=== PATIENT | female | born 1950 | race Caucasian/White ===

== ENCOUNTER 2020-04-26 14:51 | Emergency (ER) | payer MEDICARE, SELFPAY ==
[2020-04-26 14:55] VITALS: BP 146/86; PULSE 97; RESP 18; TEMP 36.8; O2SAT 97; BMI 23.9
--- NOTE | 2020-04-26 15:01 | ED_ITS ---
Documented by User: ADAMS Navarro 04/27/20 07:45 HPI - Extremity Injury (Upper) General: Chief Complaint: Extremity Injury, Upper Stated Complaint: left hand injury Time Seen by Provider: 04/26/20 14:59 Source: patient Mode of arrival: ambulatory Limitations: no limitations History of Present Illness: HPI narrative: Patient is a 69-year-old female who presents to ED today with a complaint of a left wrist injury that she sustained after accidentally tripping over her cognos bi developer door. Patient denies any other injury sustained. She has obvious deformity to her left wrist upon arrival. She is not complaining of sensory deficits. MD complaint: injury to: left and wrist Onset (ago): hour(s) Other Extremity Injury: Left: wrist Other injuries: none Place: home Severity: moderate Relieving factors: immobilization Exacerbating factors: movement of extremity Context: fall Associated symptoms: Reports no associated symptoms; Denies neck pain Review of Systems Eyes: Denies: change in vision, blurry vision or photophobia Card: Denies: chest pain Resp: Denies: dyspnea GI: Denies: nausea or vomiting Musc: Reports: joint pain (L wrist); Denies: neck pain or back pain Neuro: Denies: numbness in extremities or sensory changes Physical Exam Const: COMMON NORMALS: no acute distress, average body habitus, patient oriented x3, no limitations, healthy appearing, alert and well nourished ORIENTATION/CONSCIOUSNESS: Yes oriented to person, Yes oriented to place and Yes oriented to time Extremity: OTHER: obvious deformity to L wrist consistent with fracture; radial pulse intact and equal bilaterally; sensory intact; normal cap refill Neuro: FRANCOISE COMA SCALE: document GCS findings Francoise coma scale eye opening: Spontaneous Francoise coma scale verbal response: Orientated [place] coma scale motor response: Obey commands [place] coma scale total score: 15 COMMON NORMALS: patient oriented x3, moves all extremities and no focal motor deficits SENSORIUM/ORIENTATION: Yes alert, Yes oriented to person, Yes oriented to place and Yes oriented to time Skin: COMMON NORMALS: no rashes or lesions noted GENERAL SKIN EXAM: no rashes or lesions noted Course Consultations: Consultation #1: Dr. Lovett-reviewed imaging; recommends attem pted reduction, splint, and will see in office for surgery; will need PCR COVID test Vital Signs: Vital signs: Vital Signs Temperature 98.2 F 04/26/20 14:55 Pulse Rate 70 04/26/20 18:39 Respiratory Rate 18 04/26/20 18:39 Blood Pressure 130/77 04/26/20 18:39 Pulse Oximetry 94 04/26/20 18:39 MDM - Extremity Injury (Upper) MDM Narrative: Medical decision making narrative: Care was transferred to Dr. Vaughn at the end of my shift with plans for reduction of her wrist. Information has been placed with CM for ortho followup. COVID performed per Dr. Lovett. Pt requesting Tramadol for her pain. Imaging Data^: L wrist XR: Radiologist's impression: [facility] [place] [address] [place] [address] XRay Report Signed Patient: Montserrat oBykin #: [id number] : 3Acct#:[id number] Age/Sex: 69 / FADM Date: 04/26/20 Loc: ERRoom/Bed: Attending Dr: Ordering Provider/Ordering MD: Suad Lee Date of Service: 04/26/20 Procedure(s): XR wrist LT min 3V* [id number] Accession Number(s): [id number] Report Number: [id number] PROCEDURE INFORMATION: Exam: XR Left Wrist Exam date and time: 04/26/2020 2:59 PM Age: 69 years old Clinical indication: Injury or trauma; Fall; Blunt trauma (contusions or hematomas); Wrist; Left TECHNIQUE: Imaging protocol: XR Left wrist. Views: 3 or more views. COMPARISON: No relevant prior studies available. FINDINGS: Bones/joints: Fracture of the distal radius. The distal fracture fragment demonstrates approximately 2 cm of dorsal displacement relative to the shaft. Fracture of the ulnar styloid process demonstrated on the oblique image. The carpal bones are intact. Mild degenerative change of the 1st carpometacarpal joint. No widening of the intercarpal joints. Soft tissues: Soft tissue swelling noted. XR/XR wrist LT min 3V* [id number] IMPRESSION: Colles fracture of the left wrist. Dictated By:César Givens MD Signed By:César Givens MDSigned Date/Time:04/26/20 1606 DD/ 1604 Discharge Plan Discharge Patient Disposition: Home Clinical Impression: Closed fracture of distal end of left radius Qualifiers: Encounter type: initial encounter Fracture morphology: Colles' Qualified Code(s): S52.532A - Colles' fracture of left radius, initial encounter for closed fracture Condition: Stable Prescriptions: New tramadol 50 mg tablet 50 mg PO Q6H PRN (Reason: pain) Qty: 20 RF: 0 No Action nitroglycerin 0.4 mg tablet, sublingual 0.4 mg SUBLINGUAL Q5M PRN (Reason: Chest Pain) RF: 0 aspirin [Adult Aspirin Regimen] 81 mg tablet,delayed release (DR/EC) 81 mg PO DAILY@08 RF: 0 levothyroxine 25 mcg capsule 25 mcg PO DAILY@07 RF: 0 alendronate 70 mg tablet 70 mg PO Q7D RF: 0 Tums 300 mg (750 mg) Tablet,Chewable See Rx Instructions .ROUTE .COMPLEX RF: 0 Vitamin D2 1,250 mcg (50,000 unit) capsule 50,000 unit PO Q14D RF: 0 Tylenol PM Extra Strength 25-500 mg Tablet 1 - 2 tab PO PRN RF: 0 escitalopram oxalate 10 mg tablet 10 mg PO DAILY@09 RF: 0 Lumigan 0.01 % drops 1 drp ophthalmic (eye) DAILY@21 RF: 0 amlodipine 10 mg tablet 10 mg PO DAILY@08 RF: 0 fosinopril 40 mg tablet 40 mg PO DAILY@20 RF: 0 rosuvastatin 10 mg tablet 10 mg PO DAILY@20 RF: 0 Discharge Orders: Discharge ED (Routine); Ordered 04/26/20 Ordered By: César Vaughn Referrals: Chivo Lovett MD [Physician] - Christohper Burns DO [Primary Care Provider] - Activity Restrictions/Additional Instructions: As discussed case management should contact you tomorrow and give you an appointment date and time to see Dr. Lovett. If you have not heard from them by 3 PM, please contact the emergency department for further instructions. You most likely will require surgery this week on your wrist. Return to the emergency department for uncontrollable pain or numbness/tingling to your hand. Coding Level of Care Code ED Airdrop Systems Technician for Chg Fwd Exam Expanded Problem Focused Documented by User: César Vaughn MD 04/26/20 18:00 HPI - Extremity Injury (Upper) General: Chief Complaint: Extremity Injury, Upper Stated Complaint: left hand injury Time Seen by Provider: 04/26/20 14:59 Procedures Orthopedic Fracture Reduction Fracture #1: Time Out Performed: Yes Side: left Fracture Reduction Location: radius Analgesia: procedural sedation Technique: direct manipulation and traction/counter-traction Post Reduction X-rays Demonstrate: acceptable reduction Post-reduction neuro exam: intact Post-reduction vascular exam: intact Splint Applied: Yes Patient Tolerated Procedure: well Procedural Sedation Indication: fracture/dislocation reduction ASA Class: II Preparation: monitoring and evaluation advisor applied, pulse oximeter, capnometry used, supplemental O2 applied, reversal agents at bedside, suction/airway equipment at bedside and IV secured IV Propofol dose (mg): 65 Patient Tolerated Procedure: well Complications: none Course Vital Signs: Vital signs: Vital Signs Temperature 98.2 F 04/26/20 14:55 Pulse Rate 70 04/26/20 18:39 Respiratory Rate 18 04/26/20 18:39 Blood Pressure 130/77 04/26/20 18:39 Pulse Oximetry 94 04/26/20 18:39 Discharge Plan Discharge Patient Disposition: Home Clinical Impression: Closed fracture of distal end of left radius Qualifiers: Encounter type: initial encounter Fracture morphology: Colles' Qualified Code(s): S52.532A - Colles' fracture of left radius, initial encounter for closed fracture Condition: Stable Prescriptions: New tramadol 50 mg tablet 50 mg PO Q6H PRN (Reason: pain) Qty: 20 RF: 0 No Action nitroglycerin 0.4 mg tablet, sublingual 0.4 mg SUBLINGUAL Q5M PRN (Reason: Chest Pain) RF: 0 aspirin [Adult Aspirin Regimen] 81 mg tablet,delayed release (DR/EC) 81 mg PO DAILY@08 RF: 0 levothyroxine 25 mcg capsule 25 mcg PO DAILY@07 RF: 0 alendronate 70 mg tablet 70 mg PO Q7D RF: 0 Tums 300 mg (750 mg) Tablet,Chewable See Rx Instructions .ROUTE .COMPLEX RF: 0 Vitamin D2 1,250 mcg (50,000 unit) capsule 50,000 unit PO Q14D RF: 0 Tylenol PM Extra Strength 25-500 mg Tablet 1 - 2 tab PO PRN RF: 0 escitalopram oxalate 10 mg tablet 10 mg PO DAILY@09 RF: 0 Lumigan 0.01 % drops 1 drp ophthalmic (eye) DAILY@21 RF: 0 amlodipine 10 mg tablet 10 mg PO DAILY@08 RF: 0 fosinopril 40 mg tablet 40 mg PO DAILY@20 RF: 0 rosuvastatin 10 mg tablet 10 mg PO DAILY@20 RF: 0 Discharge Orders: Discharge ED (Routine); Ordered 04/26/20 Ordered By: César Vaughn Referrals: Chivo Lovett MD [Physician] - Christopher Burns DO [Primary Care Provider] - Activity Restrictions/Additional Instructions: As discussed case management should contact you tomorrow and give you an appointment date and time to see Dr. Lovett. If you have not heard from them by 3 PM, please contact the emergency department for further instructions. You most likely will require surgery this week on your wrist. Return to the emergency department for uncontrollable pain or numbness/tingling to your hand. Coding Level of Care Code ED Airdrop Systems Technician for Kristag Fwd Exam Expanded Problem Focused
[2020-04-26 16:11] VITALS: PULSE 72; RESP 20; O2SAT 97
[2020-04-26 16:35] VITALS: RESP 18
[2020-04-26] MEDS: morphine 4 mg/mL SDV 1 mL IVP (16:35)
[2020-04-26] MEDS: ondansetron 2 mg/ML SDV 2 mL 4 MG IVP (16:35)
[2020-04-26 17:40] VITALS: BP 151/78; PULSE 73; RESP 18; O2SAT 99
[2020-04-26] MEDS: propofol 10 mg/mL SDV 20 mL 65 MG IVP (17:42)
--- NOTE | 2020-04-26 17:49 | XRR_ITS ---
PROCEDURE INFORMATION: Exam: XR Left Wrist Exam date and time: 04/26/2020 5:50 PM Age: 69 years old Clinical indication: Condition or disease; Other: Post reduction TECHNIQUE: Imaging protocol: XR Left wrist. Views: 1 or 2 views. COMPARISON: CR (UP EXM, ) 04/26/2020 3:08 PM FINDINGS: Limitations: Immobilization device overlies the area of interest, obscuring fine detail. Bones/joints: The Colles fracture seen on the earlier study has been reduced. The articular surface of the radius is currently in neutral alignment. Soft tissues: Unremarkable. XR/XR wrist LT 2V [id number] IMPRESSION: 1. Immobilization device overlies the area of interest, obscuring fine detail. 2. Status post reduction and immobilization of left wrist Colles fracture.
[2020-04-26 17:52] VITALS: BP 151/78; PULSE 89; RESP 18; O2SAT 100
[2020-04-26 18:39] VITALS: BP 130/77; PULSE 70; RESP 18; O2SAT 94
--- NOTE | 2020-04-27 09:18 | DCPLANNER ---
hospitality services manager had message to schedule a follow up appointment for patient with ortho. hospitality services manager called the ortho clinic, spoke with Bozena, gave clinic patients information. hospitality services manager was told that patients information would be printed and reviewed. Clinic will call patient with appointment information.
--- NOTE | 2020-04-28 07:55 | DCPLANNER ---
Patient had a follow up appointment with ortho on 04.27.20 - patient did attend appointment.
[2020-04-28 18:54] LABS: Quest SARS-CoV-2 RNA NOT DETECTED (NOT DETECTED)
--- NOTE | 2020-04-29 09:41 | PC.NURSE ---
Patient called to be notified of COVID results at this time. Message left on patients phone at this time.
== END 2020-04-26 18:35 | disposition home or self-care (01) ==
PROVIDERS: Emergency Provider Physician Assistant; PCP Family Medicine
DX: S52.532A Colles' fracture of left radius, initial encounter for closed fracture (principal); Z79.82 Long term (current) use of aspirin; W22.8XXA Striking against or struck by other objects, initial encounter
CPT/HCPCS: 12345; 29125; 73100; 73110; 87635; 96374; 96375; 99282; 99284; J2270; J2405; J2704

== ENCOUNTER 2020-04-30 12:23 | Day surgery (SDC) | payer MEDICARE, SELFPAY ==
[2020-04-29 10:44] VITALS: BMI 23.9
--- NOTE | 2020-04-29 16:46 | PC.NURSE ---
Patient contacted, COVID-19 test negative
[2020-04-30] VITALS (8 sets, daily range): BP systolic 112–132; BP diastolic 63–83; PULSE 76–108; RESP 12–18; TEMP 36.4–36.6; O2SAT 94–98
--- NOTE | 2020-04-30 | XR_ITS ---
WS: [id number] Left wrist, AP and lateral C-arm fluoroscopy views in the OR, 04/30/2020 Clinical Data: ORIF LT WRIST, CHASITY PICS Comparison: Left wrist, 04/26/2020. Findings: There is a plate on the ventral aspect of the distal left radius attached with multiple orthopedic sc rews reducing the left distal radial fracture. The ulnar styloid fracture is visible. XR/XR wrist LT 2V [id number] Impression: Internal fixation of distal left radial fracture.
--- NOTE | 2020-04-30 | SCC_ITS ---
Procedure Done: Open reduction and internal fixation left distal radius 30.2 seconds of fluoroscopic guidance, for a cumulative dose of 0.33 mGy, was provided to Dr. Lovett by the radiology department. C-arm images of the LEFT wrist were saved for the patient's permanent record. [facility] HEALTH NETWORKJasmina
[2020-04-30] MEDS: sodium chloride 0.9% 1,000 ML 30 ML IV (13:31)
--- NOTE | 2020-04-30 14:03 | ANES.PREANE2 ---
Pre-Anesthetic Assessment Pre-Anesthetic Assessment: Height/Weight: Height 1.65 m Weight 65.317 kg Temp Pulse Resp BP Pulse Ox 97.6 F 76 18 131/83 98 04/30/20 13:26 04/30/20 13:26 04/30/20 13:26 04/30/20 13:26 04/30/20 13:26 Preop Diagnosis: Fracture left distal radius Proposed Procedure: Operation Date: 04/30/20 15:25 Proposed Procedures p ORIF lt distal radius fracture (75614) s52.532a(Left) - Chivo Lovett MD Familial anesthetic complications: None Was Beta Es taken within 24 hours: N/A Last intake: Intake 3-4 plain ritz crackers at 0900 Last Liquid Date 04/29/20 Last Liquid Time 20:00 Last Solid Date 04/30/20 Last Solid Time 09:00 Social: Social History: No alcohol and No tobacco Exam: Pre-Anes Outpt Exam: alert, oriented x 3, clear to auscultation bilaterally and regular rate & rhythm Airway: Cervical ROM: WNL MP: 3 Dentition: Full Pulmonary: Pulmonary: None reported CV/HEM: CV/HEM: HTN Metabolic: Metabolic: Thyroid Comments: parathyroid surgery in 2018 Anesthetic Plan: ASA status: 2 Anesthesia: General and Regional (specify below) Risk of > 500 ml blood loss (7ml/kg in children): No Meds/Allergies Current Medications: Current Medications Generic Name Dose Route Start Last Admin Trade Name Freq PRN Reason Stop Dose Admin Sodium Chloride 1,000 mls @ 30 ml s/hr 04/30/20 12:45 04/30/20 13:31 Sodium Chloride 0.9% IV 05/01/20 12:44 30 mls/hr .Q24H LETY Administration Data Anesthesia Cardiac Studies: No Data to Display
[2020-04-30] MEDS: midazolam 1 mg/mL INJ 5 ML 5 MG IVP (14:20)
--- NOTE | 2020-04-30 14:26 | ANES.PROC ---
Anesthesia Procedures Procedure/Date: 04/30/20 Nerve Block ^: Nerve Block 1: Main Anesthesia: general anesthesia Time Out Performed: Yes Consent: requested by attending/covering physician Nerve block location: supraclavicular (L) Anesthesia monitors applied: pulse oximetry, EKG, BP cuff and oxygen Nerve block position: semi sitting Anesthetic Used: ropivicaine 0.5% and with decadron (4 mg) Amount of anesthesia used (mL): 30 Ultrasound used to: recognize landmarks and visualize and ID brachial plexus Nerve Stimulator Used?: No Interscalene/Femoral BLK: 4 stimuplex 21 g needle used for position and inplane approach, visualize local anesthetic spread and no vascular puncture identified Injection: neg aspiration of heme Patient Tolerated Procedure: well and no complications Complications: none
--- NOTE | 2020-04-30 14:27 | W.PM.OPSUD ---
Surgery/Procedure H&P Update DATE OF PROCEDURE: April 30, 2020 DATE H&P PERFORMED: 04/27/20 PREOP DIAGNOSIS: Fracture left distal radius PLANNED PROCEDURE: Operation Date: 04/30/20 15:25 Proposed Procedures p ORIF lt distal radius fracture (10009) s52.532a(Left) - Chivo Lovett MD
--- NOTE | 2020-04-30 15:57 | P.OP_ITS ---
Operative Report Date of procedure: April 30, 2020 Pre-op Diagnosis: Fracture left distal radius Post-op diagnosis: same Post-op Findings: Extra-articular fracture left distal radius with dorsal comminution Procedure Done: Open reduction and internal fixation left distal radius Implants: [place] Varizx short narrow left distal radius plate Anesthesia: General and Nerve Block (Axillary nerve block) Estimated blood loss (mL): 20 Tourniquet time (min): 20 Findings: The patient had extra-articular fracture of the left distal radius with dorsal comminution Condition: stable Disposition: PACU Procedure: Initial attempts were made at closed reduction however a satisfactory stable reduction could not be obtained. A decision was made to proceed with open reduction internal fixation.A 5 cm long incision was made along over the flexor carpi radialis tendon. Dissection was carried down through the tendon sheath. Dissection was carried down bluntly to the pronator quadratus. The pronator quadratus was elevated off of the distal radius leaving a cuff for later repair. Closed reduction was accomplished of the distal radius. A [place] Variax short narrow left distal radius plate was applied. It was fixed distally with 3 2.4 mm locking screws and proximally with 3 bicortical screws. Intraoperative imaging showed excellent position of the hardware. The wound was irrigated with saline. The pronator quadratus was reapproximated with 2-0 Vicryl. Subcutaneous tissues were closed with 2-0 Vicryl. The skin was closed with skin terri. Sterile dressings were applied. The patient was taken to outpatient surgery in stable condition.
--- NOTE | 2020-04-30 19:34 | ANE.PACU2 ---
Inpatient post-anesthesia follow up: Airway intact: Yes Vital signs: Temperature 97.7 F Pulse Rate 87 Respiratory Rate 16 Blood Pressure 132/64 Pulse Oximetry 98 Oxygen Delivery Me thod Room Air Oxygen Flow Rate Fraction of Inspir ed Oxygen Hydration adequate: Yes Nausea and vomiting: No Pain level: 2 Mental status: Baseline
== END 2020-04-30 17:10 | disposition home or self-care (01) ==
PROVIDERS: PCP Family Medicine; Visit Provider Orthopaedic Surgery
PROC: (CPT 25607; principal; 2020-04-30 15:25)
DX: S52.552D Other extraarticular fracture of lower end of left radius, subsequent encounter for closed fracture with routine healing (principal); X58.XXXD Exposure to other specified factors, subsequent encounter; I10 Essential (primary) hypertension; Z79.82 Long term (current) use of aspirin
CPT/HCPCS: 25607; 12345; 64415; 73100; 76000; 76942; C1713; J0330; J0690; J1100; J1580; J2250; J2405; J2704; J2795; J3010; J3490; J7030

== ENCOUNTER 2020-05-12 14:21 | Outpatient (CLI) | payer MEDICARE, SELFPAY | END 2020-05-12 14:22 | disposition home or self-care (01) | LOC: SPT 14:21 | PROVIDERS: PCP Family Medicine; Visit Provider Orthopaedic Surgery | DX: Z46.89 Encounter for fitting and adjustment of other specified devices (principal); S52.532D Colles' fracture of left radius, subsequent encounter for closed fracture with routine healing; X58.XXXD Exposure to other specified factors, subsequent encounter | CPT/HCPCS: 97760; L3908 ==

== ENCOUNTER 2020-05-14 11:50 | Outpatient (RCR) | payer MEDICARE, SELFPAY | END 2020-05-24 23:59 | disposition home or self-care (01) | LOC: SOT 11:50 | PROVIDERS: PCP Family Medicine; Referring Provider Orthopaedic Surgery; Visit Provider Orthopaedic Surgery | DX: Z47.89 Encounter for other orthopedic aftercare (principal) | CPT/HCPCS: 97167 ==

== ENCOUNTER 2020-05-25 06:00 | Outpatient (RCR) | payer MEDICARE, SELFPAY | END 2020-06-21 23:59 | disposition home or self-care (01) | LOC: SOT 06:00 | PROVIDERS: PCP Family Medicine; Referring Provider Orthopaedic Surgery; Visit Provider Orthopaedic Surgery | DX: Z48.89 Encounter for other specified surgical aftercare (principal); S52.532D Colles' fracture of left radius, subsequent encounter for closed fracture with routine healing | CPT/HCPCS: 97018; 97110 ==

== ENCOUNTER 2020-06-02 13:05 | Outpatient (CLI) | payer MEDICARE, SELFPAY ==
--- NOTE | 2020-06-02 13:30 | USCV_ITS ---
Ashutosh Montserrat Age: 70 Gender: F : 1950 Exam Date: 06/02/2020 13:27 Ordering Phys: Jarod Hua MD ([email or web address]) Technologist: Shasha Shaffer [place]am Location[place] [facility] [place] Indication: LBBB BP: 140 / 80 HR: 92 Rhythm: Sinus Technical Quality: Adequate MEASUREMENTS (Male / Female) Normal Values 2D ECHO LV Diastolic Diameter PLAX 4.2 cm 4.2 - 5.9 / 3.9 - 5.3 cm LV Systolic Diameter PLAX 2.4 cm LV Chamber Size 4.1 cm IVS Diastolic Thickness 1.0 cm 0.6 - 1.0 / 0.6 - 0.9 cm IVS Systolic Thickness 0.9 cm LVPW Diastolic Thickness 1.0 cm 0.6 - 1.0 / 0.6 - 0.9 cm LVPW Systolic Thickness 1.4 cm RV Chamber Size 3.1 cm LVOT Diameter 2.0 cm LV Ejection Fraction 2D Teich 73.6 % LV Ejection Fraction MOD 2C 59.1 % LV Ejection Fraction 2C AL 57.3 % LA Diameter 2.1 cm LA Width 2.7 cm LA Height 2.6 cm RA Width 3.1 cm RA Height 3.2 cm Aorta at Sinotubular Diameter 3.1 cm M-MODE LV Diastolic Diameter MM 4.1 cm 4.2 - 5.9 / 3.9 - 5.3 cm LV Systolic Diameter MM 2.7 cm LV Ejection Fraction MM Teich 63.9 % IVS Diastolic Thickness MM 0.9 cm 0.6 - 1.0 / 0.6 - 0.9 cm IVS Systolic Thickness MM 1.0 cm LVPW Diastolic Thickness MM 1.0 cm 0.6 - 1.0 / 0.6 - 0.9 cm LVPW Systolic Thickness MM 1.2 cm RV Diastolic Diameter MM 0.5 cm Aortic Annulus Diameter 3.0 cm LA Ao Ratio MM 0.9 MV E Point Septal Separation 0.3 cm DOPPLER AV Peak Velocity 175.0 cm/s LVOT Peak Velocity 145.0 cm/s AV Area Cont Eq vti 2.8 cm squared AV Area Cont Eq pk 2.7 cm squared MV Area PHT 4.6 cm squared Mitral E to A Ratio 0.8 MV E' Velocity 50.5 cm/s Mitral E to MV E' Ratio 7.6 Mitral E to LV E' Lateral Ratio 8.0 Mitral E to LV E' Septal Ratio 7.3 TR Peak Velocity 302.6 cm/s TR Peak Gradient 36.6 mmHg TR Mean Velocity 223.9 cm/s TR Mean Gradient 21.7 mmHg TR Velocity Time Integral 81.4 cm TV Peak E Velocity 64.0 cm/s Right Atrial Pressure 3.0 mmHg Pulmonary Artery Systolic Pressu 39.6 mmHg PV Peak Velocity 64.0 cm/s RV Acceleration Time 0.1 s RV Ejection Time 0.3 s RV AcT/ET 0.3 FINDINGS Left Ventricle Normal left ventricular size and systolic function, EF 50-55 %. No regional wall motion abnormalities. Abnormal septal motion consistent with conduction abnormality. Grade I/IV diastolic dysfunction (abnormal relaxation filling pattern), normal to mildly elevated filling pressures. Right Ventricle The right ventricle is normal in size and function. Right Atrium The right atrium is normal in size. Left Atrium The left atrium is normal in size. Mitral Valve Thickened mitral valve. Mild mitral annular calcification. Mild mitral valve regurgitation. Mild prolapse of the anterior mitral valve leaflet. Aortic Valve Thickened aortic valve. Trace to mild aortic valve regurgitation. Tricuspid Valve Moderate tricuspid valve regurgitation. Pulmonic Valve No gross abnormalities noted Pericardium No pericardial effusion. Aorta Normal ascending aorta dimension. CONCLUSIONS Normal left ventricular size and systolic function, EF 50-55 %. No regional wall motion abnormalities. Abnormal septal motion consistent with conduction abnormality. Grade I/IV diastolic dysfunction (abnormal relaxation filling pattern), normal to mildly elevated filling pressures. Thickened mitral valve. Mild mitral annular calcification. Mild mitral valve regurgitation. Mild prolapse of the anterior mitral valve leaflet. Thickened aortic valve. Trace to mild aortic valve regurgitation. There is no pericardial effusion. There are no intracardiac masses. Beta study from 04/06/2017, there is significant improvement in the LV ejection fraction Dr Jarod Hua MD FAC (Electronically Signed) Final Date: 02 June 2020 18:29 S
== END 2020-06-02 13:06 | disposition home or self-care (01) ==
LOC: NM 13:14
PROVIDERS: PCP Family Medicine; Visit Provider Internal Medicine Cardiovascular Disease
DX: I44.7 Left bundle-branch block, unspecified; I08.0 Rheumatic disorders of both mitral and aortic valves; R07.89 Other chest pain; Z86.79 Personal history of other diseases of the circulatory system
CPT/HCPCS: 93306

== ENCOUNTER 2021-05-12 10:27 | Outpatient (CLI) | payer MEDICARE, SELFPAY ==
--- NOTE | 2021-05-12 10:37 | MM_ITS ---
WS: [id number] BILATERAL DIGITAL SCREENING MAMMOGRAPHY WITH CAD CLINICAL INFORMATION: SCREENING HISTORY: Screening mammogram. No current complaints. COMPARISON: November 14, 2016. TECHNIQUE: Bilateral CC and MLO views. FINDINGS: Scattered fibroglandular densities bilaterally. Punctate and lucent centered calcifications. Stable d ense breast tissue upper outer left breast unchanged. No suspicious focal mass, asymmetry, calcificat ions, or architectural distortion. No evidence of malignancy. MM/[place] [id number] IMPRESSION: BI-RADS: 2-Benign FOLLOW UP: 1 Year Follow-up Recommend return to annual screening mammography.
== END 2021-05-12 10:28 | disposition home or self-care (01) ==
LOC: RADSHAW 10:34
PROVIDERS: PCP Family Medicine; Visit Provider Family Medicine
DX: Z12.31 Encounter for screening mammogram for malignant neoplasm of breast (principal)
CPT/HCPCS: 77067

== ENCOUNTER → 2021-11-16 11:09 | Outpatient (BNVA) | payer MEDICARE, SELFPAY | PROVIDERS: PCP Family Medicine; Visit Provider Internal Medicine Cardiovascular Disease | DX: I42.9 Cardiomyopathy, unspecified (principal); I10 Essential (primary) hypertension; I44.7 Left bundle-branch block, unspecified; E78.5 Hyperlipidemia, unspecified | CPT/HCPCS: 99214 ==

== ENCOUNTER → 2022-02-23 07:46 | Outpatient (BNVA) | payer MEDICARE, SELFPAY | PROVIDERS: PCP Family Medicine; Referring Provider Family Medicine; Visit Provider Nurse Practitioner | DX: G31.84 Mild cognitive impairment of uncertain or unknown etiology (principal); R26.89 Other abnormalities of gait and mobility | CPT/HCPCS: 36415; 82607; 96116; 99204 ==

== ENCOUNTER 2022-03-11 06:36 | Outpatient (CLI) | payer MEDICARE, SELFPAY ==
--- NOTE | 2022-03-11 07:15 | MR_ITS ---
WS: [id number] MRI BRAIN WITH AND WITHOUT CONTRAST HISTORY: F03.90 - Unspecified dementia, unspecified severity, memory loss. COMPARISON: None available. TECHNIQUE: Multiplanar imaging performed through the brain with MultiHance 15 ml's IV. No acute infarcts are seen. Delvalle-white matter differentiation is well preserved. Symmetric atrophy an d mild small vessel ischemic disease. There is also small amount of microvascular ischemic disease in the robi bilaterally. No prior infarct. No lacunar infarct or hemorrhage. No susceptibility artifacts or prior lacunar infarcts. Ventricles and extra-axial spaces are normal. Clivus and pituitary gland are normal. Visualized posterior fossa and brainstem are also normal. Postcontrast images are negative for masses or vascular malformations. Dural venous sinuses are normal. Paranasal sinuses: Well aerated with no significant disease. Mastoid air cells: Normal. Calvarium and scalp: Normal. MR/MR head wo/w con [id number] IMPRESSION: 1. No enhancing mass or acute infarct. 2. Mild cerebral atrophy and small vessel ischemic disease. 3. Mild small vessel ischemic disease in the robi.
[2022-03-11] MEDS: gadobenate dimeglumine 20 mL vial IV (07:48)
== END 2022-03-11 06:37 | disposition home or self-care (01) ==
LOC: RAD 06:37
PROVIDERS: PCP Family Medicine; Visit Provider Nurse Practitioner
DX: F03.90 Unspecified dementia, unspecified severity, without behavioral disturbance, psychotic disturbance, mood disturbance, and anxiety (principal); I67.82 Cerebral ischemia; G31.9 Degenerative disease of nervous system, unspecified
CPT/HCPCS: 70553; A9577

== ENCOUNTER 2022-06-02 15:05 | Outpatient (CLI) | payer MEDICARE, SELFPAY ==
--- NOTE | 2022-06-02 15:14 | MM_ITS ---
WS: [id number] BILATERAL 3D TOMOSYNTHESIS DIGITAL SCREENING MAMMOGRAPHY WITH CAD CLINICAL INFORMATION: SCREENING HISTORY: Screening mammogram. No current complaints. COMPARISON: May 12, 2021 TECHNIQUE: Bilateral CC and MLO views. FINDINGS: Scattered fibroglandular densities bilaterally. No suspicious focal mass, asymmetry, calcifications, or architectural distortion. No evidence of malignancy. Punctate and lucent centered calcifications. Stable asymmetric breast tissue upper outer LEFT breast posteriorly. MM/[place] [id number] IMPRESSION: BI-RADS: 2-Benign FOLLOW UP: 1 Year Follow-up Recommend return to annual screening mammography.
== END 2022-06-02 15:06 | disposition home or self-care (01) ==
PROVIDERS: PCP Family Medicine; Visit Provider Family Medicine
DX: Z12.31 Encounter for screening mammogram for malignant neoplasm of breast (principal)
CPT/HCPCS: 77063; 77067

== ENCOUNTER → 2022-06-07 08:16 | Outpatient (BNVA) | payer MEDICARE, SELFPAY | PROVIDERS: PCP Family Medicine; Visit Provider Family Medicine | DX: R41.89 Other symptoms and signs involving cognitive functions and awareness (principal); F03.90 Unspecified dementia, unspecified severity, without behavioral disturbance, psychotic disturbance, mood disturbance, and anxiety; Z13.220 Encounter for screening for lipoid disorders; R07.89 Other chest pain; Z86.79 Personal history of other diseases of the circulatory system; E21.3 Hyperparathyroidism, unspecified; R20.2 Paresthesia of skin; R20.0 Anesthesia of skin | CPT/HCPCS: 80053; 80061; 82310; 82607; 83970; 84443; 85025 ==

== ENCOUNTER → 2022-06-08 10:09 | Outpatient (BNVA) | payer MEDICARE, SELFPAY | PROVIDERS: PCP Family Medicine; Visit Provider Nurse Practitioner Family | DX: I10 Essential (primary) hypertension (principal); I42.9 Cardiomyopathy, unspecified | CPT/HCPCS: 99214 ==

== ENCOUNTER → 2022-07-26 07:41 | Outpatient (BNVA) | payer MEDICARE, SELFPAY | PROVIDERS: PCP Family Medicine; Referring Provider Family Medicine; Visit Provider Internal Medicine | DX: E21.3 Hyperparathyroidism, unspecified (principal); E55.9 Vitamin D deficiency, unspecified; E03.9 Hypothyroidism, unspecified; F03.90 Unspecified dementia, unspecified severity, without behavioral disturbance, psychotic disturbance, mood disturbance, and anxiety; Z79.890 Hormone replacement therapy | CPT/HCPCS: 99204 ==

== ENCOUNTER → 2022-08-16 14:08 | Outpatient (BNVA) | payer MEDICARE, SELFPAY | PROVIDERS: PCP Family Medicine; Visit Provider Specialist | DX: G30.9 Alzheimer's disease, unspecified (principal); F02.80 Dementia in other diseases classified elsewhere, unspecified severity, without behavioral disturbance, psychotic disturbance, mood disturbance, and anxiety | CPT/HCPCS: 99214 ==

== ENCOUNTER → 2022-11-09 11:04 | Outpatient (BNVA) | payer MEDICARE, SELFPAY | PROVIDERS: PCP Family Medicine; Visit Provider Internal Medicine Cardiovascular Disease | DX: R06.02 Shortness of breath (principal) | CPT/HCPCS: 36415; 80048; 83880; 99214 ==

== ENCOUNTER → 2022-11-30 10:01 | Outpatient (BNVA) | payer MEDICARE, SELFPAY | PROVIDERS: PCP Family Medicine; Visit Provider Specialist | DX: G30.9 Alzheimer's disease, unspecified; F02.80 Dementia in other diseases classified elsewhere, unspecified severity, without behavioral disturbance, psychotic disturbance, mood disturbance, and anxiety; R51.9 Headache, unspecified; R52 Pain, unspecified | CPT/HCPCS: 99213 ==

== ENCOUNTER → 2022-12-06 08:51 | Outpatient (BNVA) | payer MEDICARE, SELFPAY | PROVIDERS: PCP Family Medicine; Visit Provider Family Medicine | DX: G30.9 Alzheimer's disease, unspecified (principal); F02.80 Dementia in other diseases classified elsewhere, unspecified severity, without behavioral disturbance, psychotic disturbance, mood disturbance, and anxiety; E03.9 Hypothyroidism, unspecified; R41.89 Other symptoms and signs involving cognitive functions and awareness; Z13.6 Encounter for screening for cardiovascular disorders | CPT/HCPCS: 80053; 80061; 82306; 82607; 84439; 84443; 84480; 85025 ==

== ENCOUNTER → 2023-01-16 10:25 | Outpatient (BNVA) | payer MEDICARE, SELFPAY | PROVIDERS: PCP Family Medicine; Visit Provider Family Medicine | DX: E03.9 Hypothyroidism, unspecified (principal) | CPT/HCPCS: 84443 ==

== ENCOUNTER → 2023-01-25 10:19 | Outpatient (BNVA) | payer MEDICARE, SELFPAY | PROVIDERS: PCP Family Medicine; Visit Provider Internal Medicine | DX: E21.3 Hyperparathyroidism, unspecified (principal); E03.9 Hypothyroidism, unspecified; F03.90 Unspecified dementia, unspecified severity, without behavioral disturbance, psychotic disturbance, mood disturbance, and anxiety; Z79.890 Hormone replacement therapy | CPT/HCPCS: 99214 ==

== ENCOUNTER → 2023-02-27 10:52 | Outpatient (BNVA) | payer MEDICARE, SELFPAY | PROVIDERS: PCP Family Medicine; Visit Provider Specialist | DX: G30.9 Alzheimer's disease, unspecified (principal); F02.80 Dementia in other diseases classified elsewhere, unspecified severity, without behavioral disturbance, psychotic disturbance, mood disturbance, and anxiety | CPT/HCPCS: 96116; 99214 ==

== ENCOUNTER 2023-03-22 10:42 | Outpatient (RCR) | payer MEDICARE, SELFPAY | END 2023-03-23 23:59 | disposition home or self-care (01) | LOC: SST 10:42 | PROVIDERS: Visit Provider Family Medicine | DX: R41.89 Other symptoms and signs involving cognitive functions and awareness (principal); F03.90 Unspecified dementia, unspecified severity, without behavioral disturbance, psychotic disturbance, mood disturbance, and anxiety | CPT/HCPCS: 92523 ==

== ENCOUNTER 2023-03-24 06:00 | Outpatient (RCR) | payer MEDICARE, SELFPAY | END 2023-04-23 23:59 | disposition home or self-care (01) | LOC: SST 06:00 | PROVIDERS: Visit Provider Family Medicine | DX: F03.90 Unspecified dementia, unspecified severity, without behavioral disturbance, psychotic disturbance, mood disturbance, and anxiety (principal); R41.89 Other symptoms and signs involving cognitive functions and awareness | CPT/HCPCS: 92507 ==

== ENCOUNTER 2023-04-24 06:00 | Outpatient (RCR) | payer MEDICARE, SELFPAY | END 2023-05-24 23:59 | disposition home or self-care (01) | LOC: SST 06:00 | PROVIDERS: Visit Provider Family Medicine | DX: R41.89 Other symptoms and signs involving cognitive functions and awareness (principal); F03.90 Unspecified dementia, unspecified severity, without behavioral disturbance, psychotic disturbance, mood disturbance, and anxiety | CPT/HCPCS: 92507 ==

== ENCOUNTER → 2023-05-04 10:28 | Outpatient (BNVA) | payer MEDICARE, SELFPAY | PROVIDERS: Visit Provider Family Medicine | DX: Z86.79 Personal history of other diseases of the circulatory system (principal); E03.9 Hypothyroidism, unspecified; E21.3 Hyperparathyroidism, unspecified; R41.89 Other symptoms and signs involving cognitive functions and awareness; G30.9 Alzheimer's disease, unspecified; F02.80 Dementia in other diseases classified elsewhere, unspecified severity, without behavioral disturbance, psychotic disturbance, mood disturbance, and anxiety; Z13.6 Encounter for screening for cardiovascular disorders | CPT/HCPCS: 80053; 80061; 82607; 84443; 85025 ==

== ENCOUNTER → 2023-05-22 09:46 | Outpatient (BNVA) | payer MEDICARE, SELFPAY | PROVIDERS: Visit Provider Internal Medicine Cardiovascular Disease | DX: I44.7 Left bundle-branch block, unspecified (principal); R05.2 Subacute cough; E78.5 Hyperlipidemia, unspecified; I42.9 Cardiomyopathy, unspecified; I10 Essential (primary) hypertension | CPT/HCPCS: 99214 ==

== ENCOUNTER 2023-05-25 06:00 | Outpatient (RCR) | payer MEDICARE, SELFPAY | END 2023-06-22 23:59 | disposition home or self-care (01) | LOC: SST 06:00 | PROVIDERS: Visit Provider Family Medicine | DX: F03.90 Unspecified dementia, unspecified severity, without behavioral disturbance, psychotic disturbance, mood disturbance, and anxiety (principal) | CPT/HCPCS: 92507 ==

== ENCOUNTER 2023-07-20 09:21 | Outpatient (CLI) | payer MEDICARE, SELFPAY ==
--- NOTE | 2023-07-20 09:28 | MM_ITS ---
WS: [id number] SCREENING DIGITAL BREAST TOMOSYNTHESIS MAMMOGRAM WITH CAD HISTORY: SCREENING COMPARISON: 06/02/2022, 05/12/2021 and 11/14/2016 Bilateral CC and MLO with tomosynthesis and synthetic mammography submitted. Computer aided detection analyzed. Breast composition: There are scattered areas of fibroglandular density. There is a new asymmetry in the posterior LEFT breast central to the nipple. Asymmetry measures 5 x 5 mm. Additional bilateral be nign calcifications. IMPRESSION: MM/[place] [id number] BI-RADS: 0-Incomplete: Need additional imaging evaluation FOLLOW UP: Need Additional Imaging LEFT breast: Spot compression views (CC and MLO). True ML. Ultrasound to follow if abnormality persists.
== END 2023-07-20 09:22 | disposition home or self-care (01) ==
LOC: RAD 09:22
PROVIDERS: PCP Family Medicine; Visit Provider Family Medicine
DX: Z12.31 Encounter for screening mammogram for malignant neoplasm of breast (principal); N64.89 Other specified disorders of breast; R92.1 Mammographic calcification found on diagnostic imaging of breast
CPT/HCPCS: 77063; 77067

== ENCOUNTER 2023-08-28 08:34 | Outpatient (CLI) | payer MEDICARE, SELFPAY ==
--- NOTE | 2023-08-28 09:00 | MM_ITS ---
WS: [id number] DIAGNOSTIC LEFT DIGITAL TOMOSYNTHESIS MAMMOGRAPHY WITH CAD. HISTORY: abnormal screening mammogram COMPARISON: 07/20/2023, 06/02/2022 and 05/12/2021 Technique: CC, MLO and ML views. Breast composition: There are scattered areas of fibroglandular density. The asymmetry seen on the screening mammogram in the central LEFT breast resolves with additional imaging. No persistent abnor mality. MM/[place] [id number] IMPRESSION: BI-RADS: 2-Benign FOLLOW UP: 1 Year Follow-up Resolution of the asymmetry on additional imaging. Return to annual screening m ammography.
== END 2023-08-28 08:35 | disposition home or self-care (01) ==
LOC: RAD 08:34
PROVIDERS: PCP Family Medicine; Visit Provider Family Medicine
DX: R92.8 Other abnormal and inconclusive findings on diagnostic imaging of breast (principal); R92.322 Mammographic fibroglandular density, left breast
CPT/HCPCS: 77061; G0279

== ENCOUNTER → 2023-08-30 12:01 | Outpatient (BNVA) | payer MEDICARE, SELFPAY | PROVIDERS: PCP Family Medicine; Visit Provider Specialist | DX: G30.9 Alzheimer's disease, unspecified (principal); F02.B0 Dementia in other diseases classified elsewhere, moderate, without behavioral disturbance, psychotic disturbance, mood disturbance, and anxiety | CPT/HCPCS: 99213 ==

== ENCOUNTER → 2023-09-07 08:14 | Outpatient (BNVA) | payer MEDICARE, SELFPAY | PROVIDERS: PCP Family Medicine; Visit Provider Nurse Practitioner Family | DX: L57.8 Other skin changes due to chronic exposure to nonionizing radiation (principal); Z85.828 Personal history of other malignant neoplasm of skin; Z48.817 Encounter for surgical aftercare following surgery on the skin and subcutaneous tissue; Z71.89 Other specified counseling | CPT/HCPCS: 99202 ==

== ENCOUNTER → 2023-10-09 08:05 | Outpatient (BNVA) | payer MEDICARE, SELFPAY | PROVIDERS: PCP Family Medicine; Visit Provider Nurse Practitioner Family | DX: L57.8 Other skin changes due to chronic exposure to nonionizing radiation (principal); D22.61 Melanocytic nevi of right upper limb, including shoulder; Z85.828 Personal history of other malignant neoplasm of skin; Z48.817 Encounter for surgical aftercare following surgery on the skin and subcutaneous tissue | CPT/HCPCS: 99213 ==

== ENCOUNTER → 2023-10-10 11:39 | Outpatient (BNVA) | payer MEDICARE, SELFPAY | PROVIDERS: PCP Family Medicine; Visit Provider Specialist | DX: G30.9 Alzheimer's disease, unspecified (principal); F02.80 Dementia in other diseases classified elsewhere, unspecified severity, without behavioral disturbance, psychotic disturbance, mood disturbance, and anxiety | CPT/HCPCS: 99214 ==

== ENCOUNTER → 2023-11-02 09:57 | Outpatient (BNVA) | payer MEDICARE, SELFPAY | PROVIDERS: PCP Family Medicine; Visit Provider Family Medicine | DX: E03.9 Hypothyroidism, unspecified (principal); E21.3 Hyperparathyroidism, unspecified; G30.9 Alzheimer's disease, unspecified; F02.80 Dementia in other diseases classified elsewhere, unspecified severity, without behavioral disturbance, psychotic disturbance, mood disturbance, and anxiety; R41.89 Other symptoms and signs involving cognitive functions and awareness; R07.89 Other chest pain; Z87.39 Personal history of other diseases of the musculoskeletal system and connective tissue | CPT/HCPCS: 80053; 80061; 82310; 82607; 83970; 84443; 85025 ==

== ENCOUNTER → 2023-11-06 14:12 | Outpatient (BNVA) | payer MEDICARE, SELFPAY | PROVIDERS: PCP Family Medicine; Visit Provider Nurse Practitioner Family | DX: Z85.828 Personal history of other malignant neoplasm of skin (principal); Z48.817 Encounter for surgical aftercare following surgery on the skin and subcutaneous tissue; L57.8 Other skin changes due to chronic exposure to nonionizing radiation; D22.61 Melanocytic nevi of right upper limb, including shoulder | CPT/HCPCS: 99213 ==

== ENCOUNTER → 2023-11-20 11:53 | Outpatient (BNVA) | payer MEDICARE, SELFPAY | PROVIDERS: PCP Family Medicine; Visit Provider Internal Medicine Cardiovascular Disease | DX: R07.9 Chest pain, unspecified (principal) | CPT/HCPCS: 93005; 99214 ==

== ENCOUNTER 2023-12-18 07:13 | Outpatient (CLI) | payer MEDICARE, SELFPAY ==
--- NOTE | 2023-12-18 | ECG_ITS ---
[facility] Test Date: 2023-12-18 Pat Name: Montserrat Boykin Department: Room: Gender: Female Lung Puller: : 1950 Requested By: Jarod Hua Order Number: [id number] Reading MD: Interpretive Statements Lung unchanged pre/post procedure Intraprocedure shortess of breath Symptoms resoled by discharge [id number]
[2023-12-18 07:38] VITALS: BMI 23.6
--- NOTE | 2023-12-18 07:38 | NMCV_ITS ---
NM evin perf SPECT r/s* [id number] Montserrat Boykin Age: 73 Gender: F : 1950 Exam Date: 12/18/2023 08:18 Ordering Phys: Jarod Hua MD ([email or web address]) Technologist: KEYANA Moreland Exam Location: [facility] Indications: SOB STRESS TEST Please see separate stress test report in [facility] for full findings IMAGE PROTOCOL Rest/Stress 1 Lexiscan Day Radiopharmaceutical Dose (mCi) Administration Site Administered by Rest: Tc-99m 10.7 IV KEYANA Moreland Sestamibi Stress:Tc-99m 32.4 IV KEYANA Moreland Sestamibi Rest: 18-Dec-2023 60 Discovery 630 Stress: 18-Dec-2023 30 Discovery 630 0.4mg Lexiscan. Images obtained in supine and prone position. SPECT RESULTS Technical Quality: Good Raw Data Analysis: Breast attenuation Image Corrections: No attenuation or motion correction applied Summed Stress Score: 4 Summed Rest Score: 16 Summed Difference Score: 0 PERFUSION FINDINGS Moderate area of minimal to moderately decreased tracer uptake involving the mid inferolateral, mid inferior, mid inferoseptal, mid anteroseptal and all the apical segments. No significant reversibility was noted in these regions. FUNCTIONAL RESULTS (calculated via Gated SPECT) Stress Image LV EF (%): 75 Stress EDV (mL):57 TID: 1.03 Stress ESV (mL):14 FUNCTIONAL FINDINGS: Segmental wall motion analysis revealing no gross wall motion abnormalities IMPRESSIONS 1. Myocardial perfusion imaging revealing moderate area of persistent decreased tracer uptake involving the mid inferior, inferolateral, inferoseptal, anteroseptal and all the apical segments suggesting myocardial scarring versus attenuation artifact 2. Normal LV ejection fraction 75%. 3. LV wall motion analysis revealing no gross wall motion abnormalities. 4. Normal LV volume Low probability for coronary ischemia, based on the above findings Dr Jarod Hua MD FAC (Electronically Signed) Final Date: 18 December 2023 13:39 S
[2023-12-18] MEDS: regadenoson 0.4 Mg/5 ml Syringe IVP (09:33)
[2023-12-18 09:37] VITALS: BP 126/55; PULSE 108
== END 2023-12-18 07:14 | disposition home or self-care (01) ==
PROVIDERS: PCP Family Medicine; Visit Provider Internal Medicine Cardiovascular Disease
DX: Z98.61 Coronary angioplasty status (principal); R94.39 Abnormal result of other cardiovascular function study
CPT/HCPCS: 36415; 78452; 93017; 96374; A9500; J2785

== ENCOUNTER → 2024-01-17 14:27 | Outpatient (BNVA) | payer MEDICARE, SELFPAY | PROVIDERS: PCP Family Medicine; Visit Provider Specialist | DX: G30.9 Alzheimer's disease, unspecified (principal); F02.B0 Dementia in other diseases classified elsewhere, moderate, without behavioral disturbance, psychotic disturbance, mood disturbance, and anxiety; G43.019 Migraine without aura, intractable, without status migrainosus | CPT/HCPCS: 96116; 99214 ==

== ENCOUNTER → 2024-01-25 09:01 | Outpatient (BNVA) | payer MEDICARE, SELFPAY | PROVIDERS: PCP Family Medicine; Visit Provider Internal Medicine | DX: E55.9 Vitamin D deficiency, unspecified (principal); E07.9 Disorder of thyroid, unspecified; E21.3 Hyperparathyroidism, unspecified; G30.9 Alzheimer's disease, unspecified; F02.B0 Dementia in other diseases classified elsewhere, moderate, without behavioral disturbance, psychotic disturbance, mood disturbance, and anxiety; Z87.39 Personal history of other diseases of the musculoskeletal system and connective tissue | CPT/HCPCS: 36415; 80053; 82306; 82310; 83970; 84439; 84443 ==

== ENCOUNTER 2024-01-29 14:53 | Outpatient (CLI) | payer MEDICARE, SELFPAY ==
--- NOTE | 2024-01-29 15:30 | XR_ITS ---
WS: [id number] DEXA (DUAL ENERGY X-RAY ABSORPTIOMETRY) Bone mineral density was performed using a STAT-Diagnostica machine. HISTORY: h/o osteoporosis COMPARISON: None available. Lumbar spine BMD (L1-L4): 0.874 g/cm2 T score: -2.5 Z score: -0.7 Total hip BMD: Left: 0.840 g/cm2. T score: -1.3 Z score: 0.3 Right: 0.856 g/cm2. T score: -1.2 Z score: 0.5 10 year probability of a major osteoporotic fracture is 13.0%. XR/XR DEXA axial skeleton* [id number] IMPRESSION: OSTEOPOROSIS based upon the WHO classification for females.
== END 2024-01-29 14:54 | disposition home or self-care (01) ==
LOC: RAD 14:53
PROVIDERS: PCP Family Medicine; Visit Provider Internal Medicine
DX: E21.3 Hyperparathyroidism, unspecified (principal); E55.9 Vitamin D deficiency, unspecified; M81.0 Age-related osteoporosis without current pathological fracture
CPT/HCPCS: 77080

== ENCOUNTER → 2024-02-21 13:33 | Outpatient (BNVA) | payer MEDICARE, SELFPAY | PROVIDERS: PCP Family Medicine; Visit Provider Internal Medicine Cardiovascular Disease | DX: I42.9 Cardiomyopathy, unspecified (principal); Z87.898 Personal history of other specified conditions; R07.89 Other chest pain; M41.25 Other idiopathic scoliosis, thoracolumbar region; E78.5 Hyperlipidemia, unspecified | CPT/HCPCS: 99214 ==

== ENCOUNTER → 2024-05-02 10:43 | Outpatient (BNVA) | payer MEDICARE, SELFPAY | PROVIDERS: PCP Family Medicine; Visit Provider Family Medicine | DX: E03.9 Hypothyroidism, unspecified (principal); E21.3 Hyperparathyroidism, unspecified; G30.9 Alzheimer's disease, unspecified; F02.B0 Dementia in other diseases classified elsewhere, moderate, without behavioral disturbance, psychotic disturbance, mood disturbance, and anxiety; F05 Delirium due to known physiological condition | CPT/HCPCS: 80053; 82310; 82607; 83970; 84443; 85025 ==

== ENCOUNTER → 2024-05-06 10:42 | Outpatient (BNVA) | payer MEDICARE, SELFPAY | PROVIDERS: PCP Family Medicine; Visit Provider Nurse Practitioner Family | DX: L21.8 Other seborrheic dermatitis (principal); D22.61 Melanocytic nevi of right upper limb, including shoulder; L82.1 Other seborrheic keratosis; L57.8 Other skin changes due to chronic exposure to nonionizing radiation; Z08 Encounter for follow-up examination after completed treatment for malignant neoplasm; Z85.828 Personal history of other malignant neoplasm of skin | CPT/HCPCS: 99214 ==

== ENCOUNTER 2024-07-18 10:30 | Outpatient (CLI) | payer MEDICARE, SELFPAY ==
[2024-07-18 11:31] LABS: Calcium 9.4 mg/dL (8.5-10.5)
[2024-07-18 11:38] LABS: Parathyroid Hormone 58.8 pg/mL (15-65)
[2024-07-18 11:45] LABS: 25 Hydroxy Vitamin D 41 ng/mL (30-100); Alanine Aminotransferase 7 U/L (0-33); Albumin Level 4.3 g/dL (3.5-5.2); Alkaline Phosphatase 46 U/L (35-105); Anion Gap 13.9 (5-19); Aspartate Amino Transferase 16 U/L (0-32); Blood Urea Nitrogen 12 mg/dL (8-23); Calcium 9.3 mg/dL (8.5-10.5); Carbon Dioxide 26 mmol/L (22-29); Chloride 105 mmol/L (98-107); Globulin 2.2 g/dL (1.3-4.6); Glucose 116 mg/dL (65-115); Osmolality Calculated 293 mOsm/kg (285-295); Potassium 3.9 mmol/L (3.5-5.1); Sodium 141 mmol/L (136-145); Thyroid Stimulating Hormone 2.58 uIU/mL (0.27-4.20); Total Bilirubin 0.3 mg/dL (0.15-1.2); Total Protein 6.5 g/dL (6.6-8.7)
[2024-07-18 12:08] LABS: Free T4 Free Thyroxine 1.35 ng/dL (0.82-1.77)
== END 2024-07-18 10:31 | disposition home or self-care (01) ==
PROVIDERS: PCP Family Medicine; Visit Provider Internal Medicine
DX: E55.9 Vitamin D deficiency, unspecified (principal); E07.9 Disorder of thyroid, unspecified; E21.3 Hyperparathyroidism, unspecified; Z87.39 Personal history of other diseases of the musculoskeletal system and connective tissue; F02.B0 Dementia in other diseases classified elsewhere, moderate, without behavioral disturbance, psychotic disturbance, mood disturbance, and anxiety; G30.9 Alzheimer's disease, unspecified
CPT/HCPCS: 36415; 80053; 82306; 82310; 83970; 84439; 84443

== ENCOUNTER → 2024-07-24 07:45 | Outpatient (BNVA) | payer MEDICARE, SELFPAY | PROVIDERS: PCP Family Medicine; Visit Provider Internal Medicine | DX: E21.3 Hyperparathyroidism, unspecified (principal); E03.9 Hypothyroidism, unspecified; M81.0 Age-related osteoporosis without current pathological fracture; E55.9 Vitamin D deficiency, unspecified; G30.9 Alzheimer's disease, unspecified; F02.B0 Dementia in other diseases classified elsewhere, moderate, without behavioral disturbance, psychotic disturbance, mood disturbance, and anxiety | CPT/HCPCS: 99214 ==

== ENCOUNTER → 2024-08-07 08:38 | Outpatient (BNVA) | payer MEDICARE, SELFPAY | PROVIDERS: PCP Family Medicine; Visit Provider Nurse Practitioner Family | DX: S00.00XA Unspecified superficial injury of scalp, initial encounter (principal); L82.1 Other seborrheic keratosis; D18.01 Hemangioma of skin and subcutaneous tissue; Z08 Encounter for follow-up examination after completed treatment for malignant neoplasm; Z85.828 Personal history of other malignant neoplasm of skin; L82.0 Inflamed seborrheic keratosis; R20.9 Unspecified disturbances of skin sensation; R20.8 Other disturbances of skin sensation; R23.8 Other skin changes; L53.8 Other specified erythematous conditions; L29.89 Other pruritus; X58.XXXA Exposure to other specified factors, initial encounter | CPT/HCPCS: 17110; 99213 ==

== ENCOUNTER → 2024-08-20 09:32 | Outpatient (BNVA) | payer MEDICARE, SELFPAY | PROVIDERS: PCP Family Medicine; Visit Provider Nurse Practitioner Family | DX: I10 Essential (primary) hypertension (principal); G30.9 Alzheimer's disease, unspecified; F02.80 Dementia in other diseases classified elsewhere, unspecified severity, without behavioral disturbance, psychotic disturbance, mood disturbance, and anxiety; E78.5 Hyperlipidemia, unspecified; I44.7 Left bundle-branch block, unspecified; I42.9 Cardiomyopathy, unspecified; K92.9 Disease of digestive system, unspecified; Z79.82 Long term (current) use of aspirin | CPT/HCPCS: 99214 ==

== ENCOUNTER 2024-08-28 13:42 | Outpatient (CLI) | payer MEDICARE, SELFPAY ==
--- NOTE | 2024-08-28 13:43 | MM_ITS ---
WS: [id number] BILATERAL 3D TOMOSYNTHESIS DIGITAL SCREENING MAMMOGRAPHY WITH CAD CLINICAL INFORMATION: SCREENING HISTORY: Screening mammogram. No current complaints. COMPARISON: 2023 TECHNIQUE: Bilateral CC and MLO views. FINDINGS: Scattered fibroglandular densities bilaterally. No suspicious focal mass, asymmetry, calcifications, or architectural distortion. No evidence of malignancy. Punctate and lucent centered calcifications. Vascular calcification. MM/MM scr tomosynthesis [id number] IMPRESSION: DENSITY: There are scattered areas of fibroglandular density. BI-RADS: 2 - Benign. FOLLOW UP: 1 Year Follow-up Recommend return to annual screening mammography.
== END 2024-08-28 13:43 | disposition home or self-care (01) ==
PROVIDERS: PCP Family Medicine; Visit Provider Family Medicine
DX: S00.00XA Unspecified superficial injury of scalp, initial encounter (principal); X58.XXXA Exposure to other specified factors, initial encounter; L57.8 Other skin changes due to chronic exposure to nonionizing radiation; X32.XXXA Exposure to sunlight, initial encounter; L81.4 Other melanin hyperpigmentation; L82.1 Other seborrheic keratosis; Z08 Encounter for follow-up examination after completed treatment for malignant neoplasm; Z85.828 Personal history of other malignant neoplasm of skin
CPT/HCPCS: 77063; 77067; 99213

== ENCOUNTER → 2024-11-04 09:32 | Outpatient (BNVA) | payer MEDICARE, SELFPAY | PROVIDERS: PCP Family Medicine; Visit Provider Nurse Practitioner Family | DX: L57.8 Other skin changes due to chronic exposure to nonionizing radiation (principal); X32.XXXA Exposure to sunlight, initial encounter; L81.4 Other melanin hyperpigmentation; L82.1 Other seborrheic keratosis; D22.61 Melanocytic nevi of right upper limb, including shoulder; Z08 Encounter for follow-up examination after completed treatment for malignant neoplasm; Z85.828 Personal history of other malignant neoplasm of skin | CPT/HCPCS: 99213 ==

== ENCOUNTER → 2025-01-01 12:08 | Outpatient (BNVA) | payer MEDICARE, SELFPAY | PROVIDERS: PCP Family Medicine; Visit Provider Specialist | DX: G30.9 Alzheimer's disease, unspecified (principal); F02.80 Dementia in other diseases classified elsewhere, unspecified severity, without behavioral disturbance, psychotic disturbance, mood disturbance, and anxiety; G43.019 Migraine without aura, intractable, without status migrainosus | CPT/HCPCS: 99214 ==

== ENCOUNTER 2025-01-13 10:12 | Outpatient (CLI) | payer MEDICARE, SELFPAY ==
[2025-01-13 11:53] LABS: Calcium 9.4 mg/dL (8.5-10.5)
[2025-01-13 12:01] LABS: Alanine Aminotransferase 9 U/L (0-33); Albumin Level 4.3 g/dL (3.5-5.2); Alkaline Phosphatase 46 U/L (35-105); Anion Gap 15.8 (5-19); Aspartate Amino Transferase 19 U/L (0-32); Blood Urea Nitrogen 16 mg/dL (8-23); Calcium 9.3 mg/dL (8.5-10.5); Carbon Dioxide 26 mmol/L (22-29); Chloride 106 mmol/L (98-107); Free T4 Free Thyroxine 1.16 ng/dL (0.82-1.77); Globulin 2.3 g/dL (1.3-4.6); Glucose 98 mg/dL (65-115); Osmolality Calculated 299 mOsm/kg (285-295); Potassium 3.8 mmol/L (3.5-5.1); Sodium 144 mmol/L (136-145); Thyroid Stimulating Hormone 2.73 uIU/mL (0.27-4.20); Total Protein 6.6 g/dL (6.6-8.7)
== END 2025-01-13 10:13 | disposition home or self-care (01) ==
PROVIDERS: PCP Family Medicine; Visit Provider Internal Medicine
DX: M81.0 Age-related osteoporosis without current pathological fracture (principal); F02.B0 Dementia in other diseases classified elsewhere, moderate, without behavioral disturbance, psychotic disturbance, mood disturbance, and anxiety; G30.9 Alzheimer's disease, unspecified; E55.9 Vitamin D deficiency, unspecified; E03.9 Hypothyroidism, unspecified; E21.3 Hyperparathyroidism, unspecified
CPT/HCPCS: 36415; 80053; 82306; 82310; 83970; 84439; 84443

== ENCOUNTER → 2025-01-22 08:06 | Outpatient (BNVA) | payer MEDICARE, SELFPAY | PROVIDERS: PCP Family Medicine; Visit Provider Internal Medicine | DX: E21.3 Hyperparathyroidism, unspecified (principal); E03.9 Hypothyroidism, unspecified; M81.0 Age-related osteoporosis without current pathological fracture; E55.9 Vitamin D deficiency, unspecified; G30.9 Alzheimer's disease, unspecified; F02.B0 Dementia in other diseases classified elsewhere, moderate, without behavioral disturbance, psychotic disturbance, mood disturbance, and anxiety | CPT/HCPCS: 99214 ==

== ENCOUNTER → 2025-02-27 10:38 | Outpatient (BNVA) | payer MEDICARE, SELFPAY | PROVIDERS: PCP Family Medicine; Visit Provider Internal Medicine Cardiovascular Disease | DX: R06.02 Shortness of breath (principal); R07.9 Chest pain, unspecified; E78.5 Hyperlipidemia, unspecified; I10 Essential (primary) hypertension; M41.25 Other idiopathic scoliosis, thoracolumbar region; Z86.79 Personal history of other diseases of the circulatory system; R94.31 Abnormal electrocardiogram [ECG] [EKG]; I45.89 Other specified conduction disorders | CPT/HCPCS: 36415; 80048; 83880; 87070; 93005; 99214 ==

== ENCOUNTER → 2025-03-14 09:08 | Outpatient (BNVA) | payer MEDICARE, SELFPAY | PROVIDERS: PCP Family Medicine; Visit Provider Nurse Practitioner Family | DX: S01.00XA Unspecified open wound of scalp, initial encounter (principal); X58.XXXA Exposure to other specified factors, initial encounter | CPT/HCPCS: 99214 ==

== ENCOUNTER 2025-03-17 09:21 | Outpatient (CLI) | payer MEDICARE, SELFPAY ==
--- NOTE | 2025-03-17 10:00 | USCV_ITS ---
Montserrat Boykin Age: 74 Gender: F : 1950 Exam Date: 03/17/2025 09:50 Ordering Phys: Jarod Hua MD ([email or web address]) Technologist: Exam Location: [facility] Indication: cp sob BP: 120 / 70 HR: 62 Rhythm: Sinus Technical Quality: Adequate MEASUREMENTS (Male / Female) Normal Values 2D ECHO LV Diastolic Diameter PLAX 3.8 cm 4.2 - 5.9 / 3.9 - 5.3 cm IVS Diastolic Thickness 1.0 cm 0.6 - 1.0 / 0.6 - 0.9 cm IVS Systolic Thickness 1.4 cm LVPW Diastolic Thickness 1.3 cm 0.6 - 1.0 / 0.6 - 0.9 cm LVPW Systolic Thickness 1.5 cm LVOT Diameter 2.1 cm LV Ejection Fraction 2D Teich 66.9 % LV Ejection Fraction MOD 4C 65.6 % LV Ejection Fraction MOD 2C 68.0 % LV Ejection Fraction 2C AL 68.9 % LA Diameter 2.3 cm Aorta at Sinotubular Diameter 2.7 cm IVC Diameter 1.5 cm M-MODE LA Ao Ratio MM 1.0 AV Cusp Separation MM 2.4 cm DOPPLER AV Peak Velocity 132.0 cm/s LVOT Peak Velocity 86.0 cm/s AV Area Cont Eq vti 2.6 cm squared AV Area Cont Eq pk 2.2 cm squared MV Peak Velocity 126.0 cm/s TV Peak Velocity 257.3 cm/s TR Peak Velocity 276.0 cm/s TR Peak Gradient 30.5 mmHg TV Peak E Velocity 81.0 cm/s PV Peak Velocity 124.0 cm/s FINDINGS Left Ventricle Normal LV size borderline ejection fraction of 50 to 55% (visual). Moderate hypokinesia of the mid and apical the lateral and inferolateral segments.Grade I/IV diastolic dysfunction (abnormal relaxation filling pattern), normal to mildly elevated filling pressures. Right Ventricle Normal right ventricular size and systolic function. Right Atrium Normal right atrial size. Left Atrium Normal left atrial size. IA Septum Normal appearance of the interatrial septum. Mitral Valve Mild mitral valve regurgitation. Aortic Valve No gross abnormalities noted Tricuspid Valve Zsev-hj-bspggspw tricuspid valve regurgitation. Pulmonic Valve No gross abnormalities noted Pericardium No pericardial effusion. Aorta Normal aortic annulus size. IVC Inferior vena cava not visualized. CONCLUSIONS Normal LV size borderline ejection fraction of 50 to 55% (visual). Moderate hypokinesia of the mid and apical the lateral and inferolateral segments.Grade I/IV diastolic dysfunction (abnormal relaxation filling pattern), normal to mildly elevated filling pressures. Mild mitral valve regurgitation. Hqtf-tq-gyfxptzr tricuspid valve regurgitation. Estimated pulmonary artery peak systolic pressure 34 mm of Hg. There is no pericardial effusion. There are no intracardiac masses. Compared to the study from 06/02/2020, the wall motion abnormalities appear to be new. Dr Jarod Hua MD FACC (Electronically Signed) Final Date: 17 March 2025 18:17 S
== END 2025-03-17 09:22 | disposition home or self-care (01) ==
LOC: RAD 09:23
PROVIDERS: PCP Family Medicine; Visit Provider Internal Medicine Cardiovascular Disease
DX: R06.09 Other forms of dyspnea (principal); I51.7 Cardiomegaly; I51.89 Other ill-defined heart diseases; I34.0 Nonrheumatic mitral (valve) insufficiency; I36.1 Nonrheumatic tricuspid (valve) insufficiency
CPT/HCPCS: 93306

== ENCOUNTER 2025-04-03 05:36 | Outpatient (CLI) | payer MEDICARE, SELFPAY ==
[2025-04-03] VITALS (33 sets, daily range): BP systolic 96–143; BP diastolic 55–85; PULSE 52–78; RESP 14–30; TEMP 36.7–36.9; O2SAT 94–98; BMI 20.7
--- NOTE | 2025-04-03 06:00 | XACV_ITS ---
Exam Room: [facility] Ht: 163 cm Wt: 55 kg BSA: 1.57 m2 Gender: Female : 1950 Any Known Allergies: Other Exam Priority: Routine Procedure(s): Procedure Description: Diagnostic procedure Procedure Description: Left Heart Catheterization Procedure Description: Left ventriculography Procedure Description: Coronary Angiography Javid BLOOD; Diagnostic Cath Status: Elective Diagnostic Findings * The left main is a medium caliber vessel with no significant stenotic lesions. * Left anterior descending artery is a medium caliber elongated vessel which wraparound the LV apex minimally. The artery was found to be tortuous throughout its course. Appears to have only 1 major diagonal vessel with no significant lesions. . * The left circumflex artery is a medium caliber nondominant vessel with no significant lesions. * The right coronary artery is a medium caliber dominant vessel with no significant lesions. Conclusions 1. 74-year-old white female with multiple risk factors for coronary artery disease, presenting with complaints of chest pain, fatigue and shortness of breath. She had a Myocardial perfusion imaging a year ago which was unremarkable. Because of the ongoing worsening of the symptoms, in order to further evaluate the coronary status, a cardiac catheterization was recommended. Patient underwent left heart catheterization with left and right coronary angiogram and LV angiogram today. The findings are as follows. 2. No significant obstructive coronary artery disease. Normal LV ejection fraction of 50%. LVEDP of 13 mmHg. Mild to moderate mitral regurgitation. Diagnostic RX Recommendation: medical therapy and/or counseling LV EDP: 13 mmHg Ventriculography Ejection Fraction: 50.0 % Left Ventriculography Findings: * The LV gram was performed in the HEWITT projection. The LV cavity appears to be normal size. LV ejection fraction around 50%. No significant mitral valve prolapse. Mild to moderate mitral regurgitation was noted. No filling defects are noted. The LVEDP of 13 mmHg. Pressures Phase:Rest AO : 147 / 55 ( 91 ) @ 7:45:00 AM 134 / 66 ( 96 ) @ 7:46:00 AM 124 / 61 ( 90 ) @ 7:50:00 AM 121 / 63 ( 89 ) @ 7:52:00 AM 148 / 52 ( 91 ) @ 7:57:00 AM 144 / 53 ( 91 ) @ 7:57:00 AM LV : 156 / -13 / 13 @ 7:56:00 AM 151 / -13 / 12 @ 7:57:00 AM 151 / -14 / 11 @ 7:57:00 AM Valves Phase:DefaultPhase AV : 2.0 @ 8:09:07 AM AV Mean Gradient: 8.0 @ 8:09:07 AM 8.0 @ 8:09:07 AM Clinical Evaluation EBL: 5mL-10mL Procedural Details Procedure Consent Obtained. Current Diagnosis : Chest Pain. Pre-Procedure Time Out. Identified patient by full name and date of as verbalized by the patient/guarantor. Does the consent match the physician's order: Yes. Accurate & Complete Informed Consent: Yes. Inpatient/Outpatient History & Physical on Chart: Yes. If H&P is completed, is and addenduem needed: No; If yes, is the addendum complete: N/A. Visualize and Verify Site with Patient/Guarantor: N/A. Relevant Radiology Images available: Yes. Pre-op teaching completed and patient verbalized understanding. The risks, benefits, and alternatives of sedation and/or procedure were discussed by physician. The patient agrees to continue. Procedure started. [facility] Clinical Fraility Score: 5: Mildly Frail. Retail Coverage Merchandiser Lead Indications: Other. Chest Pain Symptom Assessment: Typical Angina Symptoms. Correct patient, site and procedure confirmed by cath team. Current diagnosis: Chest Pain. PERRLA. Strong, equal hand senior bookkeeper bilaterally. Lungs clear x 5 lobes. IV Site on Arrival: 20 gauge in the left anticubital. IV Fluids: 0.9% NaCl at KVO. 0 mL infused prior to environmental laboratory technician. Pre Procedural Pulses: bilateral dorsalis pedis was 2+. Pre Procedural Pulses: bilateral posterior tibial was Doppled. Pre Procedural Pulses: bilateral radial was 2+. Oxygen started at 2liters/min via nasal canula. bilateral groins was prepped with chloroprep then draped in the usual sterile fashion. Physician notified. Baseline sample Acquired. HR: 66 BPM. Physician arrived. Physician scrubbed in. Immediate Pre-Procedure Time Out. Correct Patient: Yes; Correct Procedure: Yes; Correct Site: Yes; Correct Patient Position: Yes; Correct Supplies: Yes; Dried Flammable Prep: Yes; Blood Products Available: N/A;. Lidocaine 1% infiltrated to the right groin. Arterial access obtained with micropuncture set. A 5 egyptian JL4 catheter in over wire. Multiple views taken of left coronary artery. Catheter removed over the standard wire. A 5 egyptian JR4 catheter in over wire. Multiple views taken of right coronary artery. Catheter removed over the standard wire. A 5 egyptian Angled Pig catheter in over wire. EDP Sample taken: LV 156/-14,13; HR: 66 BPM; SpO2: 99%. LV gram performed in HEWITT @ 10 mL/second for a total of 30 mL. EDP Sample taken: LV 151/-14,12; HR: 65 BPM; SpO2: 99%. Pullback taken: LV 151/-15,11; AO 148/52(91); Mean: 8mmHg, Peak to Peak: 2mmHg, SEP: 17sec/min; HR: 66 BPM; SpO2: 98%. Catheter removed over the standard wire. Physician scrubbed out. A Suture was successful obtaining hemostatsis at the Right Femoral artery insertion site. Post Procedure: Pulses reassessed and unchanged. PERRLA. Strong, equal hand senior bookkeeper bilaterally. No VTE prophylaxis required. Medication's Wasted: Lidocaine 1% = 10 mL. Medication's Wasted: Heparin = 2500 units. Medication's Wasted: Other = Fentanyl 75mcg Versed 1 mg. Total IV fluids: 50 mL. Post-op diagnosis: Non-obstructive CAD. Complications: None. Estimated blood loss: 5mL-10mL. Responsiveness - Normal response to verbal stimuli; alert and oriented, PERRLA. Airway - Unaffected, no intervention required; spontaneous ventilation. Circulation: W/N/L, pulses unchanged. Nausea/Vomiting: No. Procedure completed. Patient transferred by bed to 1st floor. Vital chart was stopped. Access Site Site: Right Femoral artery Sheath Size: 6 Fr Hemostasis Method: Suture Hemostasis Success: Successful Procedure Medications Start: 7:35 AM Stop: 7:35 AM Medication: Versed 1 mg and Fentanyl 25 mcg Amount: 1 Route: I.V. Start: 7:46 AM Stop: 7:46 AM Medication: Heparin Amount: 1500 units Route: I.V. Start: 7:57 AM Stop: 7:57 AM Medication: 0.9% Saline Amount: 250 ml Route: I.V. bolus I, the attending physician, have reviewed and verified all procedure medications. Yes, all medications given per verbal order History/Risk Factors Hypertension: Yes Dyslipidemia: Yes Peripheral Arterial Disease (PAD): No Myocardial Infarction ([place]): No Obesity: No Renal Disease: No Tobacco Use: Never Prior Interventions PCI: No CABG: No Valve Surgery: No Report Signatures Finalized by Dr Jarod Hua MD [facility] on 04/04/2025 01:07 PM
[2025-04-03 06:24] LABS: Hematocrit 37.8 % (36-47); Hemoglobin 12.30 g/dL (11.27-16.99); Mean Corpuscular HGB Conc 32.5 g/dL (30-55); Mean Corpuscular Hemoglobin 29.9 pg (27-33); Mean Corpuscular Volume 91.7 fl (85-98); Nucleated Red Blood Cells % 0 %; Platelet Count 338 10^3/cmm (157-399); Red Blood Count 4.12 10^6/uL (3.85-5.65); White Blood Count 5.96 10^3/uL (3.29-11.43)
[2025-04-03 06:42] LABS: Anion Gap 15.8 (5-19); Blood Urea Nitrogen 15 mg/dL (8-23); Calcium 9.3 mg/dL (8.5-10.5); Carbon Dioxide 28 mmol/L (22-29); Chloride 104 mmol/L (98-107); Glucose 92 mg/dL (65-115); Osmolality Calculated 298 mOsm/kg (285-295); Potassium 3.8 mmol/L (3.5-5.1); Sodium 144 mmol/L (136-145)
--- NOTE | 2025-04-03 07:08 | PM.HP ---
Providers/Chief Complaint Admitting Physician: ALLIE Hua MD Primary Care Provider: Christopher Burns DO Chief Complaint: R93.1 History of Present Illness Montserrat Boykin is a 74 year old female with a history of hypertension, dyslipidemia, left bundle branch block, cardiomyopathy, TIA, family tremor and dementia, presenting with episodes of shortness of breath/chest discomfort/weakness. She had a Myocardial perfusion imaging a year ago which was unremarkable. Because of the ongoing worsening of the symptoms, in order to further evaluate the coronary status, a cardiac catheterization was recommended. Patient has no fever, chills or cough. No orthopnea PND. She had an echocardiogram done which revealed multiple wall motion abnormalities with borderline low ejection fraction of 50 to 55%. The wall motion abnormalities were found to be new compared to the previous study. Review of Systems Narrative: CONSTITUTIONAL: No fever or chills. Feeling of weakness/dyspnea on exertion. EYES: No blurring of vision or other visual disturbances lately. ENT: No hoarseness of voice, auditory disturbances or sore throat. CARDIOVASCULAR: As mentioned above. RESPIRATORY: No significant cough. GASTROINTESTINAL: No hematemesis or melena. GENITOURINARY: No dysuria or hematuria. INTEGUMENTARY: No skin rashes or history of skin cancer. NEURO: History of familial tremor and borderline dementia. History of TIA PSYCHIATRIC: No history of psychosis or major depression. HEMATOLOGIC: No bleeding disorders or significant anemia. ENDOCRINE: No history of polyuria or polydipsia. MUSCULOSKELETAL: No recent joint pain or swelling. ALLERGY/IMMUNOLOGY: As mentioned above. Medications/Allergies Home Medications ?Medication ?Instructions ?Recorded ?Confirmed ?Last Taken ?Type aspirin 81 mg tablet,delayed 81 mg PO DAILY@08 12/06/19 04/03/25 04/03/25 04:30 History release (Adult Aspirin Regimen) diphenhydramine 25 1 - 2 tab PO PRN 04/26/20 04/03/25 Unknown History mg-acetaminophen 500 mg tablet (Tylenol PM Extra Strength) rivastigmine tartrate 4.5 mg 4.5 mg PO ONCE #180 caps 06/27/24 04/03/25 04/02/25 09:30 Rx capsule carvedilol 3.125 mg tablet 3.125 mg PO BID #180 tabs 08/20/24 04/03/25 04/02/25 17:30 Rx alendronate 70 mg tablet 70 mg PO Q7D #90 tabs 10/14/24 04/03/25 03/28/25 Rx escitalopram oxalate 10 mg tablet 10 mg PO DAILY #90 tabs 11/11/24 04/03/25 04/02/25 09:30 Rx ergocalciferol (vitamin D2) 1,250 See Rx Instructions .Route 12/26/24 04/03/25 03/28/25 Rx mcg (50,000 unit) capsule .COMPLEX #12 caps levothyroxine 25 mcg tablet 37.5 mcg (1.5 x 25 mcg) PO DAILY 12/26/24 04/03/25 04/02/25 09:30 Rx (Euthyrox) thyroid #90 tabs ketoconazole 2 % shampoo 1 applic topical Q14D 01/01/25 04/03/25 Unknown History amlodipine 10 mg tablet See Rx Instructions .Route 01/13/25 04/03/25 04/02/25 09:30 Rx .COMPLEX #90 tabs nitroglycerin 0.4 mg sublingual See Rx Instructions .Route 03/10/25 04/03/25 Unknown Rx tablet .COMPLEX #25 tabs amitriptyline 25 mg tablet 25 mg PO BEDTIME 04/03/25 04/03/25 04/02/25 20:30 History calcium carbonate 1,000 mg tablet 1,000 mg PO TID 04/03/25 04/03/25 04/02/25 17:30 History rosuvastatin 10 mg tablet 10 mg PO BEDTIME 04/03/25 04/03/25 04/02/25 20:30 History Allergies Allergy/AdvReac Type Severity Reaction Status Date / Time oxycodone Allergy Severe N/V Verified 03/18/25 11:32 PFSH Acute PFSH: Medical History Cognitive decline Dementia History of hypertension Hx of hyperlipidemia Hx of cardiomyopathy Hx of left bundle branch block Hx of osteoporosis Surgical History Hx of breast surgery Hx of tubal ligation Hx of total cystectomy Hx of parathyroidectomy Family History Sister CAD (coronary artery disease) Lung disease Cancer Brother CAD (coronary artery disease) Father CAD (coronary artery disease) Diabetes Mother Cancer Denies family history of Clotting disorder Dementia Chronic kidney disease (CKD) Suicide Anesthesia complication Bleeding disorder Stroke Social History Smoking and tobacco/nicotine status: never used tobacco/nicotine Alcohol intake: never Substance/Drug Use: never Vitals/I&O/Wt Last Vital Signs Temp 98.1 F 04/03/25 06:00 Pulse 52 L 04/03/25 06:00 Resp 16 04/03/25 06:00 BP 143/70 04/03/25 06:00 Pulse Ox 98 04/03/25 06:00 O2 Del Method Room Air 04/03/25 06:00 Weight last 48 hrs Weight 121 lb Physical Exam Narrative: GENERAL: The patient is alert and oriented times three. Not in any acute distress. HEENT: No significant pallor, icterus or lymphadenopathy.Oral cavity: There are no mucous membrane lesions. NECK: Trachea appears to be central. No masses noted. No JVD or thyromegaly appreciated. RESPIRATORY: Chest is symmetrical. No intercostals muscle retraction or any accessory muscle activation. There is no chest wall tenderness. Breath sounds are heard bilaterally. No rales or rhonchi heard. No evidence of any consolidation. BREASTS: Deferred. HEART: The heart sounds are normal. No S3 or S4. No significant murmurs. No pericardial rub ABDOMEN: No vessel pulsations or distention. No tenderness. No organomegaly appreciated. Bowel sounds are normally heard. : Deferred. RECTAL: Deferred. LYMPHATIC: No lymphadenopathy noted in the neck. EXTREMITIES: No edema or cyanosis. No clubbing. MUSCULOSKELETAL: No acute joint deformities or swelling SKIN: There are no significant rashes or ecchymosis NEUROPSYCHIATRIC: The patient is alert and oriented x3. Appears to be in a good mood. No tremors or rigidity noted. Data 04/03/25 06:17 04/03/25 06:17 Other Labs: Laboratory Last Values WBC 5.96 10^3/uL (3.29-11.43) 04/03/25 06:17 RBC 4.12 10^6/uL (3.85-5.65) 04/03/25 06:17 Hgb 12.30 g/dL (11.27-16.99) 04/03/25 06:17 Hct 37.8 % (36-47) 04/03/25 06:17 MCV 91.7 fl (85-98) 04/03/25 06:17 MCH 29.9 pg (27-33) 04/03/25 06:17 MCHC 32.5 g/dL (30-55) 04/03/25 06:17 RDW 13.5 % (12.1-15.1) 04/03/25 06:17 Plt Count 338 10^3/cmm (157-399) 04/03/25 06:17 MPV 9.3 fL (7.4-10.4) 04/03/25 06:17 Neut % (Auto) 41.9 % 04/03/25 06:17 Lymph % (Auto) 39.8 % 04/03/25 06:17 [place] % (Auto) 11.4 % 04/03/25 06:17 Eos % (Auto) 5.2 % 04/03/25 06:17 Baso % (Auto) 1.5 % 04/03/25 06:17 Neut # (Auto) 2.50 10^3/uL (1.8-7.7) 04/03/25 06:17 Lymph # (Auto) 2.4 10^3/uL (0.8-4.8) 04/03/25 06:17 [place] # (Auto) 0.7 10^3/uL (0.2-0.9) 04/03/25 06:17 Eos # (Auto) 0.3 10^3/uL (0.0-0.8) 04/03/25 06:17 Baso # (Auto) 0.1 10^3/uL (0.0-0.1) 04/03/25 06:17 Nucleated RBC % (auto) 0 % 04/03/25 06:17 Nucleated RBCs # 0.0 /100WBC 04/03/25 06:17 Sodium 144 mmol/L (136-145) 04/03/25 06:17 Potassium 3.8 mmol/L (3.5-5.1) 04/03/25 06:17 Chloride 104 mmol/L (98-107) 04/03/25 06:17 Carbon Dioxide 28 mmol/L (22-29) 04/03/25 06:17 Anion Gap 15.8 (5-19) 04/03/25 06:17 BUN 15 mg/dL (8-23) 04/03/25 06:17 Creatinine 0.9 mg/dL (0.5-0.9) 04/03/25 06:17 GFR Calculation Not Reportable 04/03/25 06:17 Glucose 92 mg/dL (65-115) 04/03/25 06:17 Calculated Osmolality 298 mOsm/kg (285-295) H 04/03/25 06:17 Calcium 9.3 mg/dL (8.5-10.5) 04/03/25 06:17 A&P Assessment and plan 1. Other chest pain: In view of the worsening symptoms of chest discomfort/shortness of breath/fatigue, multiple risk factors and new wall motion abnormality by echocardiogram, in order to further evaluate the patient's coronary status, a cardiac catheterization would be appropriate. 2. History of hypertension: The blood pressure is slightly elevated. We need to optimize the antihypertensive medications. 3. Hx of hyperlipidemia: Continue the current management. 4. Hx of cardiomyopathy: The latest LV ejection fraction was 50 to 55%. She has no evidence of heart failure. 5. Hx of left bundle branch block: This is chronic. Plan: Patient is scheduled for a left heart catheterization with coronary angiogram and possible PCI. The risks and benefits were discussed. The risk of bleeding, hematoma, vascular injury, myocardial infarction, myocardial perforation, malignant cardiac arrhythmias ,CVA, renal failure and other concomitant complications were explained in detail. Patient understood this well and consented to proceed. Based on the angiogram findings, further recommendations will be made. PDMP PDMP Reviewed: Not Reviewed Attestations Medical Necessity Statement*: Patient may require overnight stay for further monitoring and management Coding Level of Care Code 05646 Diagnoses Other chest pain R07.89 Chest pain type: other chest pain History of hypertension Z86.79 Hx of hyperlipidemia Z86.39 Hx of cardiomyopathy Z86.79 Hx of left bundle branch block Z86.79
--- NOTE | 2025-04-03 07:15 | W.PM.OPSUD ---
Surgery/Procedure H&P Update DATE OF PROCEDURE: April 03, 2025 DATE H&P PERFORMED: 04/03/25 H&P UPDATE INFORMATION: I have reviewed H&P completed within last 30 days, I have examined patient prior to procedure and No changes to prior documentation PREOP DIAGNOSIS: ASHD PRIMARY INDICATION FOR PROCEDURE: Ongoing worsening of symptoms of chest pain/pressure/shortness of breath/fatigue. Abnormal echocardiogram, multiple risk factors for coronary disease PLANNED PROCEDURE: Operation Date: 04/03/25 07:00 Proposed Procedures p Cardiac Catheterization(Left) - Jarod Hua MD PATIENT REASSESSED PRIOR TO SEDATION, WITH NO CHANGE NOTED: Yes PHYSICAL EXAM: alert, oriented x 3, clear to auscultation bilaterally and regular rate & rhythm AIRWAY EVAL/ANESTHESIA PLAN: normal airway, see other exam findings, ASA III, Monitored Anesthesia, Local Anesthesia, Risks, benefits & alternatives of sedation and/or procedure discussed and Patient agrees to continue as planned
--- NOTE | 2025-04-03 08:10 | PM.OP ---
Operative Report Date of procedure: April 03, 2025 Surgeon: aJrod Hua MD Procedure: Patient underwent left heart catheterization with left and right coronary angiogram and LV angiogram today. She was found to have no significant obstructive coronary artery disease. The LVEDP was 13. The LV ejection fraction was around 50%. Patient tolerated the procedure very well and there were no complications. Need to look into a noncardiac cause for her chest pain and shortness of breath
--- NOTE | 2025-04-03 08:38 | PC.NURSE ---
Patient received from lab specialist s/p [facility] diagnostic only at 0815. Patient has sheath sutured in with pressure bag in place. Dressing over sight remains c,d,i without s/s of bleeding or hematoma formation observed. Instructed patient and spouse about site care with restrictions. Both verbalized complete understanding.
--- NOTE | 2025-04-03 10:18 | PC.NURSE ---
Initiated sheath removal per protocol at 0920. Hemostasis achieved immediately. Maintained pressure to site for 20min. No s/s of bleeding or hematoma formation observed. Covered site with folded 4x4 and bio-occlusive. Instructed patient and spouse and both verbalized complete understanding.
--- NOTE | 2025-04-03 15:50 | PC.NURSE ---
patient discharged to home per Dr Hua. Instruction provided to patient and spouse regarding follow up appointments and site care with restrictions. No medication changes at this time. Both verbalized complete understanding. Right femoral dressing remains c,d,i without s/s of bleeding or hematoma formation observed. Patient denies pain or needs. No distress observed. Patient taken by wheelchair to private vehicle with spouse by side.
== END 2025-04-03 15:40 | disposition home or self-care (01) ==
LOC: CCL 05:47 → CSU 08:03
PROVIDERS: PCP Family Medicine; Visit Provider Internal Medicine Cardiovascular Disease
DX: R07.9 Chest pain, unspecified (principal); R53.83 Other fatigue; R06.02 Shortness of breath; I10 Essential (primary) hypertension; E78.5 Hyperlipidemia, unspecified; I34.0 Nonrheumatic mitral (valve) insufficiency; Z86.73 Personal history of transient ischemic attack (TIA), and cerebral infarction without residual deficits; Z79.82 Long term (current) use of aspirin; Z86.79 Personal history of other diseases of the circulatory system; Z86.39 Personal history of other endocrine, nutritional and metabolic disease
CPT/HCPCS: 36415; 80048; 85025; 93458; 96365; 99152; C1769; C1887; C1894; J1644; J2250; J3010; J3490; J7030; J9999; Q0163; Q9967

== ENCOUNTER → 2025-04-09 14:57 | Outpatient (BNVA) | payer MEDICARE, SELFPAY | PROVIDERS: PCP Family Medicine; Visit Provider Nurse Practitioner Family | DX: R06.00 Dyspnea, unspecified (principal); L25.8 Unspecified contact dermatitis due to other agents | CPT/HCPCS: 99214 ==

== ENCOUNTER 2025-04-22 09:29 | Outpatient (CLI) | payer MEDICARE, SELFPAY ==
[2025-04-22 09:56] VITALS: PULSE 72; RESP 18; O2SAT 98
== END 2025-04-22 09:30 | disposition home or self-care (01) ==
LOC: RT 09:33
PROVIDERS: PCP Family Medicine; Visit Provider Nurse Practitioner Family
DX: R06.02 Shortness of breath (principal); J98.4 Other disorders of lung
CPT/HCPCS: 94060; J7613